=== PATIENT | female | born 1960 | race Caucasian/White ===

== ENCOUNTER → 2018-03-14 | Outpatient (CLI) | payer BC ==
[~2018-03-14] MED LIST: METF-397 PO; TRAM-42 PO
--- NOTE | 2018-03-14 10:07 | Diagnostic Imaging Report ---
INDICATION: Routine screening. COMPARISON: 09/28/2015 and 09/16/2014. TECHNIQUE: 2D and 3D bilateral screening mammography was performed with CAD. FINDINGS: Scattered fibroglandular densities are identified bilaterally. The parenchymal pattern is stable. No mass or malignant appearing microcalcifications are seen. The axillae are unremarkable. IMPRESSION: No mammographic features suspicious for malignancy are identified. ACR BI-RADS Category 1: Negative. Result letter will be mailed to the patient. Note: At least 10% of breast cancer is not imaged by mammography. Dictated by: Dictated on workstation # [id number]
== END ==
LOC: RAD 08:45
PROVIDERS: ATTEND Nurse Practitioner Family
DX: Z12.31 Encounter for screening mammogram for malignant neoplasm of breast (principal)
CPT/HCPCS: 77067

== ENCOUNTER → 2019-03-16 | Outpatient (CLI) | payer BC ==
--- NOTE | 2019-03-16 10:40 | Diagnostic Imaging Report ---
INDICATION: Screening. TECHNIQUE: The current study was also evaluated with a Computer Aided Detection (CAD) system. 3D Tomographic imaging was also performed. COMPARISON: 03/14/2018, 09/28/2015, and 09/16/2014. FINDINGS: There are scattered fibroglandular densities bilaterally. There are a few benign type calcifications. There is no dominant mass, spiculated lesion, or suspicious calcification identified. The skin, nipples, and axillae are unremarkable. IMPRESSION: Benign findings. ACR BI-RADS Category 2: Benign findings. Result letter will be mailed to the patient. Note: At least 10% of breast cancer is not imaged by mammography. Dictated by: Dictated on workstation # [id number]
== END ==
LOC: RAD 09:23
PROVIDERS: ATTEND Nurse Practitioner Family
DX: Z12.31 Encounter for screening mammogram for malignant neoplasm of breast (principal)
CPT/HCPCS: 77067

== ENCOUNTER → 2019-08-03 | Outpatient (CLI) | payer BC ==
--- NOTE | 2019-08-03 11:56 | Diagnostic Imaging Report ---
EXAMINATION: Chest, PA and lateral views. INDICATION: Dyspnea and shortness of breath. COMPARISON: Multiple priors, most recently performed on 06/23/2018. FINDINGS: Scattered hazy opacities are demonstrated in the left mid and lower lung. The lungs are otherwise clear. No pneumothorax or pleural effusion. Heart size and mediastinal contours are normal and unchanged. No acute osseous abnormality is appreciated. Surgical clips are demonstrated in the right upper abdominal quadrant. IMPRESSION: Scattered hazy airspace disease in the left mid and lower lung, possibly reflecting infection. Dictated by: Dictated on workstation # [id number]
== END ==
LOC: RAD 11:34
PROVIDERS: ATTEND Nurse Practitioner Family
DX: R06.09 Other forms of dyspnea (principal); R91.8 Other nonspecific abnormal finding of lung field
CPT/HCPCS: 71046

== ENCOUNTER 2021-10-23 09:56 | Outpatient (RCR) | payer BC, OTHER | END 2021-11-05 | disposition home or self-care (01) | LOC: LAB 09:56 | PROVIDERS: ATTEND Family Medicine | DX: E11.65 Type 2 diabetes mellitus with hyperglycemia (principal); L65.9 Nonscarring hair loss, unspecified; L68.0 Hirsutism | CPT/HCPCS: 36415; 82530 ==